=== PATIENT | male | born 1960 | race African-American/Black ===

== ENCOUNTER 2018-02-17 23:10 | Emergency (ER) | payer BC ==
[~2018-02-17] VITALS: Ht 180.3 cm; Wt 104.3 kg
[~2018-02-17 23:10] MED LIST: LOSA100T7 PO; MULT-208 PO; OMEP40CA5 PO; TRAZ-85 PO
[2018-02-17 23:59] LABS: BASO # 0.1 x10^3/uL (0.0-0.2); BASO % 1 % (0-3); EOS # 0.2 x10^3/uL (0.0-0.7); EOS % 3 % (0-3); HEMATOCRIT 37.5 % (39.0-53.0); HEMOGLOBIN 13.3 g/dL (13.0-17.5); LYMPH # 1.5 x10^3/uL (1.0-4.8); LYMPH % 27 % (24-48); MEAN CORPUSCULAR HEMOGLOBIN 31 pg (25-35); MEAN CORPUSCULAR HGB CONC 35 g/dL (31-37); MEAN CORPUSCULAR VOLUME 87 fL (79-100); MONO # 0.4 x10^3/uL (0.0-1.1); MONO % 8 % (0-9); NEUT # 3.5 x10^3uL (1.8-7.7); NEUT % 61 % (31-73); PLATELET COUNT 200 x10^3/uL (140-400); RED BLOOD COUNT 4.29 x10^6/uL (4.30-5.70); RED CELL DISTRIBUTION WIDTH 14.6 % (11.5-14.5); WHITE BLOOD COUNT 5.7 x10^3/uL (4.0-11.0)
[2018-02-18 00:10] LABS: PROTHROMBIN TIME PATIENT 12.6 SEC (11.7-14.0)
[2018-02-18 00:24] LABS: ALBUMIN 3.7 g/dL (3.4-5.0); ALBUMIN/GLOBULIN RATIO 0.9 (1.0-1.7); CALCIUM 9.4 mg/dL (8.5-10.1); CREATININE 1.1 mg/dL (0.7-1.3); GFR 82.9; POTASSIUM 3.5 mmol/L (3.5-5.1); TOTAL BILIRUBIN 0.3 mg/dL (0.2-1.0); TOTAL PROTEIN 7.6 g/dL (6.4-8.2)
[2018-02-18] MEDS ORDERED: fentaNYL PF VIAL 100 MCG/2 ML VIAL IV ONE (00:30)
[2018-02-18] MEDS ORDERED: HYDR-971 PO (01:10)
[2018-02-18 02:30] VITALS: BP 129/67
--- NOTE | 2018-02-18 02:44 | PHYS DOC ---
Past Medical History Past Medical History: Hypertension, Hypothyroid Alcohol Use: Rarely Drug Use: None Adult General Chief Complaint Chief Complaint: CHEST PAIN HPI HPI Patient is a 57 year old male presenting with chest discomfort. He says it is in his left pectoralis muscle. He says he thinks he might have strained his muscle while hammering today at work. One hour prior to arrival approximately 9 to 9:30 PM he said that the pain was quite severe at hurts to touch it hurts to take deep breath it is not exertional it radiates toward the lateral aspect of his rib area no shortness of breath. No previous history of heart problems Review of Systems Review of Systems Constitutional: Denies fever or chills [] Eyes: Denies change in visual acuity, redness, or eye pain [] HENT: Denies nasal congestion or sore throat [] Respiratory: Denies cough or shortness of breath [] Cardiovascular: No additional information not addressed in HPI [] : Denies dysuria or hematuria [] Musculoskeletal: Denies back pain or joint pain [] ia [] All other systems were reviewed and found to be within normal limits, except as documented in this note. Current Medications Current Medications Current Medications Medications (Trade) Dose Ordered Sig/Chary Start Time Stop Time Status Last Admin Dose Admin Fentanyl Citrate (Fentanyl 2ml Vial) 50 mcg 1X ONCE 02/18/18 00:30 02/18/18 00:31 DC 02/18/18 00:27 50 MCG Allergies Allergies Allergies Coded Allergies Type Severity Reaction Last Updated Verified No Known Drug Allergies 05/25/16 No Physical Exam Physical Exam Constitutional: Well developed, well nourished, no acute distress, non-toxic appearance. [] HENT: Normocephalic, atraumatic, bilateral external ears normal, oropharynx moist, no oral exudates, nose normal. [] Eyes: PERRLA, EOMI, conjunctiva normal, no discharge. [] Neck: Normal range of motion, no tenderness, supple, no stridor. [] Cardiovascular:Heart rate regular rhythm, no murmur [] Lungs & Thorax: Bilateral breath sounds clear to auscultation []chest wall tenderness noted left peC Abdomen: Bowel sounds normal, soft, no tenderness, no masses, no pulsatile masses. [] Skin: Warm, dry, no erythema, no rash. [] Back: No tenderness, no CVA tenderness. [] Extremities: No tenderness, no cyanosis, no clubbing, ROM intact, no edema. [] Neurologic: Alert and oriented X 3, normal motor function, normal sensory function, no focal deficits noted. [] Psychologic: Affect normal, judgement normal, mood normal. [] Current Patient Data Vital Signs Vital Signs Date Time Temp Pulse Resp B/P (MAP) Pulse Ox O2 Delivery O2 Flow Rate FiO2 02/18/18 00:31 74 16 124/58 (80) 97 Room Air 02/17/18 23:12 98.9 98.9 Lab Values Laboratory Tests Test 02/17/18 23:50 02/18/18 01:40 White Blood Count 5.7 x10^3/uL (4.0-11.0) Red Blood Count 4.29 x10^6/uL (4.30-5.70) L Hemoglobin 13.3 g/dL (13.0-17.5) Hematocrit 37.5 % (39.0-53.0) L Mean Corpuscular Volume 87 fL (79-100) Mean Corpuscular Hemoglobin 31 pg (25-35) Mean Corpuscular Hemoglobin Concent 35 g/dL (31-37) Red Cell Distribution Width 14.6 % (11.5-14.5) H Platelet Count 200 x10^3/uL (140-400) Neutrophils (%) (Auto) 61 % (31-73) Lymphocytes (%) (Auto) 27 % (24-48) Monocytes (%) (Auto) 8 % (0-9) Eosinophils (%) (Auto) 3 % (0-3) Basophils (%) (Auto) 1 % (0-3) Neutrophils # (Auto) 3.5 x10^3uL (1.8-7.7) Lymphocytes # (Auto) 1.5 x10^3/uL (1.0-4.8) Monocytes # (Auto) 0.4 x10^3/uL (0.0-1.1) Eosinophils # (Auto) 0.2 x10^3/uL (0.0-0.7) Basophils # (Auto) 0.1 x10^3/uL (0.0-0.2) Prothrombin Time 12.6 SEC (11.7-14.0) Prothrombin Time INR 1.0 (0.8-1.1) D-Dimer (Elizabeth) 0.29 ug/mlFEU (0.00-0.50) Sodium Level 141 mmol/L (136-145) Potassium Level 3.5 mmol/L (3.5-5.1) Chloride Level 102 mmol/L (98-107) Carbon Dioxide Level 28 mmol/L (21-32) Anion Gap 11 (6-14) Blood Urea Nitrogen 14 mg/dL (8-26) Creatinine 1.1 mg/dL (0.7-1.3) Estimated GFR (Cockcroft-Gault) 82.9 BUN/Creatinine Ratio 13 (6-20) Glucose Level 134 mg/dL (70-99) H Calcium Level 9.4 mg/dL (8.5-10.1) Total Bilirubin 0.3 mg/dL (0.2-1.0) Aspartate Amino Transferase (AST) 10 U/L (15-37) L Alanine Aminotransferase (ALT) 20 U/L (16-63) Alkaline Phosphatase 56 U/L (46-116) Troponin I Quantitative < 0.017 ng/mL (0.000-0.055) < 0.017 ng/mL (0.000-0.055) ZD-Asd-O-Type Natriuretic Peptide 22 pg/mL (0-124) Total Protein 7.6 g/dL (6.4-8.2) Albumin 3.7 g/dL (3.4-5.0) Albumin/Globulin Ratio 0.9 (1.0-1.7) L Laboratory Tests 02/17/18 23:50 Laboratory Tests 02/17/18 23:50 EKG EKG [] Interpretation Time: Sinus rhythm rate of 85 no acute ischemic changes noted interpreted by me the time of encounter. Radiology/Procedures Radiology/Procedures [] Impressions: CXR BY ME NEGATIVE ACUTE Course & Med Decision Making Course & Med Decision Making Pertinent Labs and Imaging studies reviewed. (See chart for details) []HEART SCORE 2 TOTAL DDIMER NEGATIVE REPRODUUCBILE ON EXAM TWO TROPONINS NEGATIVE. SUSPECT CHEST WALL PAIN, ADVISED PMD F/U IN THE NEXT FEW DAYS FOR FOLLOW UP. DOES NTO SOUND LIKE PE DISSECTION OR ACUTE CORONARY SYNDROME. Dragon Disclaimer Dragon Disclaimer This electronic medical record was generated, in whole or in part, using a voice recognition dictation system. Departure Departure Impression: Primary Impression: Chest wall pain Disposition: HOME, SELF-CARE Condition: IMPROVED Patient Instructions: Chest Wall Pain, [id number] Scripts Hydrocodone/Apap 5-325 (NORCO 5-325 TABLET) 1 Each Tablet 1-2 EACH PO PRN Q6HRS PRN for PAIN, #15 as needed for pain Prov: PEBBLES SIDDIQUI MD 02/18/18 PEBBLES SIDDIQUI MD Feb 18, 2018 02:44
--- NOTE | 2018-02-18 06:15 | EKG ---
[facility] [address] [place] [id number] Test Date: 2018-02-17 Test Time: 23:16:36 Pat Name: EVAN KING Department: Room: Gender: M [employer]ice: : [id number] Requested By: EPBBLES SIDDIQUI Order Number: [id number] Reading MD: Jr Ramesh MD Measurements Intervals [place] Rate: 84 P: 30 GA: 166 QRS: -16 QRSD: 84 T: 30 QT: 352 QTc: 419 Interpretive Statements SINUS RHYTHM Electronically Signed On 02-18-2018 12:26:32 CDT by Jr Ramesh MD
--- NOTE | 2018-02-18 08:39 | RAD ---
PORTABLE CHEST 1V History: CHEST PAIN. Comparison: January 05, 2011 image, no report available. Heart size: Stable Lori/mediastinum: Stable Lungs: No focal infiltrate or consolidation. Small dense right lung base nodule compatible with granuloma stable. Pleura: No evidence of pleural effusion. Pneumothorax: None visualized Bones: Regional skeleton appears grossly intact. Miscellaneous: None Impression: Stable exam, no acute radiographic findings. Electronically signed by: Timur Sheikh MD (02/18/2018 8:36 AM) [id number]
== END 2018-02-18 02:30 | disposition home or self-care (01) ==
LOC: ER 23:10
DX: R07.89 Other chest pain (principal); I10 Essential (primary) hypertension; E03.9 Hypothyroidism, unspecified
CPT/HCPCS: 36415; 71045; 80053; 83880; 84484; 85025; 85379; 85610; 93005; 96374; 99285; J3010